=== PATIENT | female | born 1965 | race Caucasian/White ===

== ENCOUNTER 2018-01-13 22:52 | Emergency (ER) | payer BC ==
[~2018-01-13] VITALS: Ht 162.6 cm; Wt 104.4 kg
[2018-01-13 23:49] LABS: HEMATOCRIT 39.5 % (36.0-46.0); HEMOGLOBIN 13.7 G/DL (11.9-15.5); MCH 31.4 PG (29.0-34.0); MCHC 34.7 G/DL (30.0-36.0); MCV 90.4 FL (83-99); PLATELET COUNT 309 K/uL (156-360); RBC DIS.WIDTH-CV 12.7 % (11.8-14.6); RED BLOOD COUNT 4.37 M/uL (3.80-5.20); WHITE BLOOD COUNT 12.2 K/uL (4.1-10.2)
[2018-01-14] LABS: CHLORIDE 106 mEq/L (99-109); SODIUM 141 mEq/L (136-147)
[2018-01-14 00:01] LABS: GLUCOSE 119 mg/dL (70-99)
[2018-01-14 00:05] LABS: CREATININE 0.8 mg/dL (0.6-1.3); GFR ESTIMATE (CALCULATED) > 59 mL/min/
[2018-01-14 00:06] LABS: UREA NITROGEN (BUN) 12 mg/dL (9-23)
[2018-01-14] MEDS ORDERED: ZOFRAN ODT4 MG PO (00:09)
[2018-01-14 01:19] VITALS: BP 129/78
[2018-01-15] MEDS ORDERED: PHENADOZ25 MG PR (01:04)
[2018-01-15] MEDS ORDERED: REGLAN10 MG PO (01:04)
== END 2018-01-14 01:19 | disposition home or self-care (01) ==
LOC: EME → EDBD 22:52 → EME 22:52
PROVIDERS: Emergency Medicine
DX: R11.0 Nausea (principal); R00.2 Palpitations; T42.6X5A Adverse effect of other antiepileptic and sedative-hypnotic drugs, initial encounter; T43.215A Adverse effect of selective serotonin and norepinephrine reuptake inhibitors, initial encounter; E86.0 Dehydration; E83.52 Hypercalcemia; G89.29 Other chronic pain; M54.9 Dorsalgia, unspecified
CPT/HCPCS: 80048; 85027; 93005; 99281; 99285; J7030

== ENCOUNTER 2018-01-14 19:21 | Emergency (ER) | payer BC ==
[~2018-01-14] VITALS: Ht 162.6 cm; Wt 104.5 kg
[~2018-01-14 19:21] MED LIST: ZOFRAN ODT4 MG PO
[2018-01-14 21:37] LABS: APPEARANCE CLEAR ((CLEAR)); BILIRUBIN NEGATIVE; BLOOD NEGATIVE; COLOR STRAW ((YELLOW)); GLUCOSE (STRIP) 50; KETONES NEGATIVE; LEUKOCYTES NEGATIVE; NITRITE NEGATIVE; PROTEIN (STRIP) NEGATIVE; SPECIFIC GRAVITY 1.005 (1.000-1.030); UCUL ADDED? NO; UROBILINOGEN 0.2 MG/DL (0.2-1.0)
[2018-01-14 21:48] LABS: AMPHETAMINE NEGATIVE (500 ng/mL); BARBITURATES NEGATIVE (200 ng/mL); BENZODIAZEPINES NEGATIVE (150 ng/mL); BUPRENORPHINE NEGATIVE (10 ng/mL); COCAINE NEGATIVE (150 ng/mL); METHADONE NEGATIVE (200 ng/mL); METHAMPHETAMINE NEGATIVE (500 ng/mL); OPIATES (MORPHINE) NEGATIVE (100 ng/mL); OXYCODONE NEGATIVE (100 ng/mL); PHENCYCLIDINE NEGATIVE (25 ng/mL); PROPOXYPHENE NEGATIVE (300 ng/mL); THC CANNABINOIDS NEGATIVE (50 ng/mL); TRICYCLIC ANTIDEPRESSANTS NEGATIVE (300 ng/mL)
[2018-01-14 21:49] LABS: MCV 88.7 FL (83-99); PLATELET COUNT 317 K/uL (156-360); RBC DIS.WIDTH-CV 12.7 % (11.8-14.6); RBC DIS.WIDTH-SD 41.2 % (39-53); RED BLOOD COUNT 4.51 M/uL (3.80-5.20); WHITE BLOOD COUNT 12.2 K/uL (4.1-10.2)
[2018-01-14 21:58] LABS: ALBUMIN 4.7 g/dL (3.2-4.8); CHLORIDE 108 mEq/L (99-109); POTASSIUM 3.7 mEq/L (3.7-5.4); SODIUM 140 mEq/L (136-147)
[2018-01-14 22:01] LABS: GLUCOSE 128 mg/dL (70-99); TOTAL PROTEIN 7.9 g/dL (6.4-8.3)
[2018-01-14 22:03] LABS: TOTAL BILIRUBIN 0.4 mg/dL (0.0-1.0)
[2018-01-14 22:04] LABS: CREATININE 0.8 mg/dL (0.6-1.3); GFR ESTIMATE (CALCULATED) > 59 mL/min/; SERUM ETHYL ALCOHOL < 10 mg/dL
[2018-01-14 22:05] LABS: ALKALINE PHOSPHATASE 92 IU/L (3-129)
[2018-01-14 22:06] LABS: AST (GOT) 21 IU/L (2-34); UREA NITROGEN (BUN) 8 mg/dL (9-23)
[2018-01-14 22:08] LABS: ACETAMINOPHEN (TYLENOL) < 10 mcg/mL (10-30); ALT (GPT) 28 IU/L (3-49); SALICYLATE < 5.0 MG/DL (15-30)
[2018-01-15] MEDS ORDERED: REGLAN10 MG PO (01:04)
[2018-01-15] MEDS ORDERED: PHENADOZ25 MG PR (01:04)
[2018-01-15 01:24] VITALS: BP 158/94
== END 2018-01-15 01:24 | disposition home or self-care (01) ==
LOC: EME 19:21
PROVIDERS: Nurse Practitioner Family
DX: R11.2 Nausea with vomiting, unspecified (principal); R45.851 Suicidal ideations; T50.995A Adverse effect of other drugs, medicaments and biological substances, initial encounter; F41.9 Anxiety disorder, unspecified; F33.9 Major depressive disorder, recurrent, unspecified
CPT/HCPCS: 80053; 81003; 85027; 90839; 93005; 99281; 99285; G0480

== ENCOUNTER 2018-01-15 04:54 | Emergency (ER) | payer BC ==
[~2018-01-15] VITALS: Ht 162.6 cm; Wt 103.7 kg
[~2018-01-15 04:54] MED LIST changes: +PHENADOZ25 MG PR; +REGLAN10 MG PO
[2018-01-15 06:36] LABS: AMPHETAMINE NEGATIVE (500 ng/mL); BARBITURATES NEGATIVE (200 ng/mL); BENZODIAZEPINES NEGATIVE (150 ng/mL); BUPRENORPHINE NEGATIVE (10 ng/mL); COCAINE NEGATIVE (150 ng/mL); METHADONE NEGATIVE (200 ng/mL); METHAMPHETAMINE NEGATIVE (500 ng/mL); OPIATES (MORPHINE) NEGATIVE (100 ng/mL); OXYCODONE NEGATIVE (100 ng/mL); PHENCYCLIDINE NEGATIVE (25 ng/mL); PROPOXYPHENE NEGATIVE (300 ng/mL); THC CANNABINOIDS NEGATIVE (50 ng/mL); TRICYCLIC ANTIDEPRESSANTS NEGATIVE (300 ng/mL)
[2018-01-15 06:43] LABS: HEMATOCRIT 40.3 % (36.0-46.0); HEMOGLOBIN 14.1 G/DL (11.9-15.5); MCH 31.3 PG (29.0-34.0); MCV 89.4 FL (83-99); PLATELET COUNT 291 K/uL (156-360); RBC DIS.WIDTH-CV 12.8 % (11.8-14.6); RBC DIS.WIDTH-SD 41.6 % (39-53); RED BLOOD COUNT 4.51 M/uL (3.80-5.20); WHITE BLOOD COUNT 12.7 K/uL (4.1-10.2)
[2018-01-15 07:19] LABS: ACETAMINOPHEN (TYLENOL) < 10 MCG/ML (10-30); CHLORIDE 106 MEQ/L (99-109); CREATININE 0.7 MG/DL (0.6-1.3); GFR ESTIMATE (CALCULATED) > 59 mL/min/; GLUCOSE 121 mg/dL (70-99); SALICYLATE < 3.0 MG/DL (15-30); SERUM ETHYL ALCOHOL < 10 mg/dL; SODIUM 140 MEQ/L (136-147); UREA NITROGEN (BUN) 8 mg/dL (9-23)
[2018-01-15 07:21] LABS: POTASSIUM 4.5 MEQ/L (3.7-5.4)
[2018-01-15 18:08] VITALS: BP 160/87
== END 2018-01-15 18:15 ==
LOC: EME → EDBD 04:54 → EME 18:15
PROVIDERS: Emergency Medicine
DX: F33.9 Major depressive disorder, recurrent, unspecified (principal); R45.851 Suicidal ideations; F41.9 Anxiety disorder, unspecified; G89.29 Other chronic pain
CPT/HCPCS: 80048; 85027; 90837; G0480